=== PATIENT | female | born 1970 | race African-American/Black ===

== ENCOUNTER 2016-11-03 08:38 | Emergency (ER) | payer MEDICAID ==
[~2016-11-03] VITALS: Ht 165.1 cm; Wt 81.6 kg
[2016-11-03 08:50] VITALS: BP 198/111
--- NOTE | 2016-11-03 08:50 | NUR ---
N/V X 2 DAYS AGO, REPORTS WHITE STOOL YESTERDAY. GOWNED PT AWAITING MD ORDER
--- NOTE | 2016-11-03 09:00 | NUR ---
DR QUIGLEY AT BEDSIDE FOR EVAL
== END 2016-11-03 09:42 | disposition home or self-care (01) ==
LOC: ER 08:40
DX: F12.90 Cannabis use, unspecified, uncomplicated (principal); I10 Essential (primary) hypertension
CPT/HCPCS: 99281; A4606; Z7610; Z7502

== ENCOUNTER 2017-02-27 10:25 | Emergency (ER) | payer MEDICAID ==
[~2017-02-27] VITALS: Ht 165.1 cm; Wt 84.8 kg
[2017-02-27] MEDS ORDERED: hydrALAZINE HCL IV 20 MG VIAL IV ONE (11:00)
--- NOTE | 2017-02-27 11:00 | NUR ---
assume pt care. here for hypertension. c/o dizziness and chest discomfort. on gown on monitor. seen by ermd w/ orders. will cont to monitor.
[2017-02-27 11:04] LABS: BASOPHILS % (AUTO) 0.3 % (0.0-2.0); EOSINOPHILS # (AUTO) 0.1 /CMM (0.0-0.7); EOSINOPHILS % (AUTO) 0.8 % (0.0-6.0); HEMATOCRIT 39 % (33-45); HEMOGLOBIN 13.1 g/dL (11.5-14.8); LYMPHOCYTES # (AUTO) 1.2 /CMM (0.8-4.8); LYMPHOCYTES % (AUTO) 17.4 % (20.0-44.0); MEAN CORPUSCULAR HEMOGLOBIN 31 PG (26.0-33.0); MEAN CORPUSCULAR HGB CONC 34 g/dl (31.0-36.0); MEAN CORPUSCULAR VOLUME 91 fL (82-100); MONOCYTES # (AUTO) 0.3 /CMM (0.1-1.30); NEUTROPHILS # (AUTO) 5.6 /CMM (1.8-8.9); NEUTROPHILS % (AUTO) 77.5 % (43.0-81.0); PLATELET COUNT (AUTO) 185 /CMM (150-450); RDW COEFFICIENT OF VARIATION 11.9 (11.5-15.0); RED BLOOD CELL COUNT(AUTO) 4.28 MIL/uL (4.0-5.2); WHITE BLOOD COUNT (AUTO) 7.2 K/uL (4.3-11.0)
[2017-02-27] MEDS ORDERED: hydrALAZINE HCL IV 20 MG VIAL ONE (11:07)
--- NOTE | 2017-02-27 11:10 | NUR ---
medicated as ordered.
[2017-02-27 11:13] LABS: CALCIUM, SERUM 9.3 mg/dL (8.5-10.1); CARBON DIOXIDE 29 mmol/L (21-32); CHLORIDE 100 mmol/L (98-107); GLUCOSE 146 mg/dL (74-106); POTASSIUM 3.2 mmol/L (3.5-5.1); SODIUM SERUM 138 mmol/L (136-145); UREA NITROGEN, BLOOD 10 mg/dL (7-18)
[2017-02-27 11:18] LABS: ALANINE AMINOTRANSFERASE 19 U/L (12-78); ALBUMIN 4.4 g/dL (3.4-5.0); ALKALINE PHOSPHATASE 49 U/L (46-116); ASPARTATE AMINOTRANSFERASE 18 U/L (15-37); BILIRUBIN,DIRECT 0.2 mg/dL (0.0-0.2); BILIRUBIN,TOTAL 1.3 mg/dL (0.2-1.0); TOTAL PROTEIN, SERUM 7.7 g/dL (6.4-8.2)
[2017-02-27 11:35] LABS: TROPONIN I < 0.017 ng/mL (0.00-0.056)
[2017-02-27] MEDS ORDERED: POTASSIUM CHLORIDE 20 MEQ TAB.PRT.SR PO ONE ×2 (12:00→12:11)
[2017-02-27 13:00] VITALS: BP 144/85
== END 2017-02-27 13:01 | disposition home or self-care (01) ==
LOC: ER 10:27
DX: I10 Essential (primary) hypertension (principal); Z98.890 Other specified postprocedural states
CPT/HCPCS: 36415; 80048; 80076; 84484; 85025; 93005; 96374; 99285; A4606; J0360; Z7610

== ENCOUNTER 2020-06-13 08:24 | Emergency (ER) | payer MEDICAID ==
[~2020-06-13] VITALS: Ht 165.1 cm; Wt 83.5 kg
--- NOTE | 2020-06-13 08:24 | NUR ---
PT BIB SELF C/O L SIDED CHEST PAIN AND HIGH BP 200'S SYSTOLIC. PT IS AAOX4, NOT IN RESPIRATORY DISTRESS, HOOKED TO LEG BREAKER, KEPT RESTED AND COMFORTABLE. WILL CONTINUE TO MONITOR.
--- NOTE | 2020-06-13 08:30 | NUR ---
AT BEDSIDE FOR EVAL.
--- NOTE | 2020-06-13 08:43 | NUR ---
IV LINE ESTABLISHED BLOOD DRAWN AND SENT TO LAB.
[2020-06-13] MEDS ORDERED: LORAZEPAM 0.5 MG TABLET ONE (08:47)
[2020-06-13 08:55] LABS: HEMATOCRIT 38 % (33-45); MEAN CORPUSCULAR HGB CONC 35 g/dl (31.0-36.0)
[2020-06-13 08:58] LABS: BASOPHILS % (AUTO) 0.7 % (0.0-2.0); EOSINOPHILS % (AUTO) 0.9 % (0.0-6.0); LYMPHOCYTES # (AUTO) 1.3 /CMM (0.8-4.8); LYMPHOCYTES % (AUTO) 20.6 % (20.0-44.0); MEAN CORPUSCULAR VOLUME 89 fL (82-100); MONOCYTES # (AUTO) 0.4 /CMM (0.1-1.30); MONOCYTES % (AUTO) 5.4 % (2.0-12.0); NEUTROPHILS # (AUTO) 4.7 /CMM (1.8-8.9); NEUTROPHILS % (AUTO) 72.4 % (43.0-81.0); PLATELET COUNT (AUTO) 177 /CMM (150-450); RED BLOOD CELL COUNT(AUTO) 4.21 MIL/uL (4.0-5.2); WHITE BLOOD COUNT (AUTO) 6.5 K/uL (4.3-11.0)
[2020-06-13] MEDS ORDERED: LORAZEPAM 1 MG TABLET PO ONE (09:00)
[2020-06-13 09:04] LABS: CALCIUM, SERUM 9.2 mg/dL (8.5-10.1); CARBON DIOXIDE 31 mmol/L (21-32); CHLORIDE 103 mmol/L (98-107); CREATININE 1.2 mg/dL (0.6-1.3); GLUCOSE 103 mg/dL (74-106); POTASSIUM 3.4 mmol/L (3.5-5.1); SODIUM SERUM 142 mmol/L (136-145); UREA NITROGEN, BLOOD 9 mg/dL (7-18)
[2020-06-13] MEDS ORDERED: METO-357 PO (09:26)
[2020-06-13] MEDS ORDERED: LORA-259 PO (09:26)
--- NOTE | 2020-06-13 09:32 | NUR ---
IV removed. Catheter intact and site benign. Pressure and 4x4 applied to site. No bleeding noted. Patient discharged to home in stable condition. Written and verbal after care instructions given. Patient verbalizes understanding of instruction.
[2020-06-13 09:33] VITALS: BP 148/100
== END 2020-06-13 09:39 | disposition home or self-care (01) ==
LOC: ER 08:27
DX: I10 Essential (primary) hypertension (principal); F41.9 Anxiety disorder, unspecified; F10.10 Alcohol abuse, uncomplicated; Y90.9 Presence of alcohol in blood, level not specified; Z79.899 Other long term (current) drug therapy; Z98.890 Other specified postprocedural states
CPT/HCPCS: 36415; 80048-TC; 84484-TC; 85025-TC

== ENCOUNTER 2021-01-07 19:31 | Emergency (ER) | payer MEDICAID ==
[~2021-01-07] VITALS: Ht 165.1 cm; Wt 90.7 kg
[~2021-01-07 19:31] MED LIST: LORA-259 PO; METO-357 PO
--- NOTE | 2021-01-07 19:35 | NUR ---
PATIENT WAS [id number] FROM HOME WITH C/O NAUSEA AND VOMITING SINCE THIS MORNING, BP WAS 180/109. PT IS AAO X 4, BREATHIGN EVEN AND UNLABORED, STATES SHE IS FEELING DIZZY AND HAS VOMITED SEVERAL TIMES THROUGH OUT THE DAY. PT WAS SEEN AND EXAMINED BY DR GROVE. PT ATTACHED TO MONITOR AND PULSE OX. WILL CONTINUE TO MONITOR AND CARRY OUT MD ORDERS.
[2021-01-07] MEDS ORDERED: ONDANSETRON HCL/PF 4 MG/2 ML VIAL ONE (19:55)
[2021-01-07] MEDS ORDERED: IV NS 0.9% 1,000 ML BAG IV ONE (20:00)
[2021-01-07] MEDS ORDERED: ONDANSETRON HCL/PF 4 MG/2 ML VIAL IVP ONE (20:00)
--- NOTE | 2021-01-07 20:00 | NUR ---
IV LINE ESTABLISHED AT RAC 20G, BLOOD DRAWN, COVID AG SWAB DONE, URINE COLLECTED, ALL SENT TO LAB
[2021-01-07 20:07] LABS: BASOPHILS % (AUTO) 0.4 % (0.0-2.0); HEMATOCRIT 40 % (33-45); HEMOGLOBIN 13.7 g/dL (11.5-14.8); LYMPHOCYTES # (AUTO) 0.8 K/uL (0.8-4.8); LYMPHOCYTES % (AUTO) 7.5 % (20.0-44.0); MEAN CORPUSCULAR HGB CONC 34 g/dl (31.0-36.0); MEAN CORPUSCULAR VOLUME 90 fL (82-100); MONOCYTES # (AUTO) 0.4 K/uL (0.1-1.30); MONOCYTES % (AUTO) 3.3 % (2.0-12.0); NEUTROPHILS # (AUTO) 9.9 K/uL (1.8-8.9); NEUTROPHILS % (AUTO) 88.8 % (43.0-81.0); PLATELET COUNT (AUTO) 193 K/uL (150-450); RED BLOOD CELL COUNT(AUTO) 4.47 MIL/uL (4.0-5.2); WHITE BLOOD COUNT (AUTO) 11.1 K/uL (4.3-11.0)
[2021-01-07 20:14] LABS: ALBUMIN 4.3 g/dL (3.4-5.0); BILIRUBIN,DIRECT 0.2 mg/dL (0.0-0.2); CALCIUM, SERUM 9.3 mg/dL (8.5-10.1); POTASSIUM 3.5 mmol/L (3.5-5.1); TOTAL PROTEIN, SERUM 8.3 g/dL (6.4-8.2)
[2021-01-07 20:16] LABS: BILIRUBIN,URINE NEGATIVE (NEGATIVE); COLOR,URINE YELLOW (YELLOW); LEUKOCYTE ESTERASE ,URINE NEGATIVE (NEGATIVE); NITRITE, URINE NEGATIVE (NEGATIVE); PROTEIN,URINE 100 mg/dl (NEGATIVE); UGLUCOSE NEGATIVE (NEGATIVE); UROBILINOGEN,URINE 0.2 EU/dL (0.2)
[2021-01-07 20:22] LABS: BACTERIA,URINE 1+ /HPF (None Seen); RBC,URINE 0-2 /HPF (0-2); SQUAMOUS EPITHELIAL CELL,UR Few /HPF (None Seen); URINE AMORPHOUS PHOSPHATES Moderate /HPF (None Seen); WBC,URINE 0-2 /HPF (0-3)
[2021-01-07 20:23] LABS: COARSE GRANULAR CASTS,URINE Few /LPF (None Seen)
[2021-01-07] MEDS ORDERED: ENALAPRILAT INJ (1.25 MG/ML) 1.25 MG/ML VIAL IV ONE (20:36)
[2021-01-07] MEDS ORDERED: AMLO-212 PO (20:52)
[2021-01-07] MEDS ORDERED: ONDA4TAB11 PO (20:52)
[2021-01-07] MEDS ORDERED: ENALAPRILAT DIHYD. (2.5MG/2ML) 1.25 MG/ML VIAL IV ONE (21:00)
[2021-01-07] MEDS ORDERED: AMLODIPINE BESYLATE 5 MG TABLET ONE (21:29)
[2021-01-07] MEDS ORDERED: AMLODIPINE BESYLATE 5 MG TABLET PO ONE (21:30)
--- NOTE | 2021-01-07 22:38 | NUR ---
Patient discharged to home in stable condition. Written and verbal after care instructions given. Patient verbalizes understanding of instruction. Patient ambulatory with a steady gait
[2021-01-07 22:39] VITALS: BP 168/116
== END 2021-01-07 22:39 | disposition home or self-care (01) ==
LOC: ER 19:32
DX: R11.10 Vomiting, unspecified (principal); I10 Essential (primary) hypertension; Z20.822 Contact with and (suspected) exposure to COVID-19
CPT/HCPCS: 36415; 80048; 80076; 81001; 83690; 85025; 87426; 96361; 96374; 96375; 99285; C9803; J2405; J3490; J7030